=== PATIENT | female | born 1965 | race Caucasian/White ===

== ENCOUNTER 2017-02-08 19:55 | Emergency (ER) | payer OTHER ==
[2017-02-09 00:23] VITALS: BP 134/74
== END 2017-02-09 00:23 | disposition home or self-care (01) ==
LOC: ED 19:55
DX: N39.0 Urinary tract infection, site not specified (principal); E11.9 Type 2 diabetes mellitus without complications; Z79.84 Long term (current) use of oral hypoglycemic drugs
CPT/HCPCS: J3010